=== PATIENT | female | born 1995 | race Two or more races ===

== ENCOUNTER 2020-02-16 11:10 | Outpatient (REF) | payer OTHER, SELFPAY | END 2020-02-16 11:11 | disposition home or self-care (01) | LOC: HO.LAB 11:10 | PROVIDERS: Visit Provider Internal Medicine | DX: Z20.828 Contact with and (suspected) exposure to other viral communicable diseases (principal) | CPT/HCPCS: C9803; U0003 ==

== ENCOUNTER 2024-04-06 11:11 | Emergency (ER) | payer OTHER, SELFPAY ==
--- NOTE | ~2024-04-06 | XR_ITS ---
EXAMINATION: XR ELBOW, RIGHT CLINICAL INFORMATION: right elbow pain. COMPARISON: None available. TECHNIQUE: AP, lateral, and oblique views of the right elbow. FINDINGS: Anterior sail sign raising concern for possible underlying occult fracture, no displaced fracture can be visualized however this could be subtle occult. XR/XR elbow RT min 3V IMPRESSION: Anterior sail sign raising concern for possible occult fracture, no displaced fracture can be visualized by radiograph however this could be subtle occult. Consider correlation with patient's symptoms and may consider follow-up x-ray or CT scan in 3 days. Electronically signed by: Mony Tang MD 04/06/2024 11:40 AM [facility]
--- NOTE | ~2024-04-06 | XR_ITS ---
EXAMINATION: XR HAND/WRIST, RIGHT CLINICAL INFORMATION: fracture? COMPARISON: None available. TECHNIQUE: PA, lateral, and oblique views of the right hand and wrist. FINDINGS: The clinical history submitted states only fracture? It does not state exactly where fracture is suspected, limiting the study. Therefore, clinical correlation is advised. Right second distal phalanx bone island. The bones and soft tissues otherwise appear unremarkable. No fracture identified. Alignment is anatomic. Joint spaces appear maintained. No erosions or soft tissue calcifications. XR/XR hand wrist RT IMPRESSION: No acute finding. Electronically signed by: Dg Quigley MD 04/06/2024 12:05 PM [facility]
--- NOTE | ~2024-04-06 | US_ITS ---
EXAMINATION: US TRIPLEX UPPER EXTREMITY, RIGHT CLINICAL INFORMATION: Right arm feels swollen. COMPARISON: None available. TECHNIQUE: Color-flow triplex imaging with spectral analysis and compression Doppler was performed on the right upper extremity. FINDINGS: The right internal jugular, subclavian, and axillary veins appear patent and free of thrombus. The imaged segment of the right brachiocephalic vein is patent. Spectral doppler waveforms appear unremarkable. The brachial, basilic, cephalic, radial, and ulnar veins are patent and compressible. Incidentally visualized, normal-appearing right level III lymph node. US/US venous duplex UE RT IMPRESSION: No evidence of venous thrombosis involving the right upper extremity. Electronically signed by: Dg Quigley MD 04/06/2024 01:51 PM EST
[2024-04-06 11:14] VITALS: BP 120/84; PULSE 87; RESP 16; TEMP 36.4; O2SAT 99
--- NOTE | 2024-04-06 11:18 | ED_ITS ---
HPI - General Adult General Chief complaint: Extremity Injury, Upper Stated complaint: arm pain Time Seen by Provider: 04/06/24 11:25 Source: patient Mode of arrival: ambulatory Limitations: no limitations History of Present Illness ED Provider: Ted Barry HPI narrative: 28 yold female with pmh of DM presents to the ED right elbow pain for one week with pain when flexing or extending elbow. patient denies any recent trauma. patient having symptoms for one week. patient thought her hand felt swollen so she had to cut her rings off. patient denies any birht control use. Patient denies any chest pain or shortness of breath. Patietn deneis any redness or swelling, or bluish black discloration Related Data Previous Rx's ?Medication ?Instructions ?Recorded naproxen 500 mg tablet 500 mg PO BID PRN pain 7 days #14 04/06/24 tabs Allergies Allergy/AdvReac Type Severity Reaction Status Date / Time No Known Allergies Allergy Verified 04/06/24 11:18 Review of Systems 2 Review of Systems: right elbow pain Yes all other systems are reviewed and are negative [facility] Social History Social History Advance Directives: No Physical Exam ED Vital Signs: Vital Signs - 24 hr 04/06/24 11:14 04/06/24 14:51 04/06/24 14:54 Temperature 97.5 F 98.2 F 98.2 F Pulse Rate 87 72 72 Respiratory Rate 16 14 14 Blood Pressure 120/84 105/69 105/69 Pulse Oximetry 99 99 99 Oxygen Delivery Method Room Air Room Air Room Air BMI result Body Mass Index 20.0 Const General: cooperative, healthy appearing, comfortable and no acute distress Orientation/consciousness: patient oriented x3 HENMT Head: Yes normal to inspection, Yes No palpable skull fracture present, Yes normocephalic and Yes atraumatic Eyes General: appearance normal, both eyes and all related structures Neck Neck: Yes normal visual inspection, Yes full ROM, Yes no lymphadenopathy, Yes no meningeal signs, Yes trachea midline, Yes supple, No anterior neck swelling and No tender Chest Chest palpation & inspection: normal inspection of the chest and normal palpation of entire chest wall Resp Effort & Inspection: normal respiratory effort and able to speak in complete sentences Auscultation: clear to auscultation bilaterally Cardio Jugular venous distension: no JVD Heart sounds: S1 normal heart sound present and S2 normal heart sound present GI Inspection: Yes normal to inspection Palpation (GI): Soft to palpation, not firm, nontender, no guarding and not rigid General: Yes no CVA tenderness Back/Spine/Pelvis Back: no CVA tenderness and No back tenderness Skin General skin exam: no rashes or lesions noted, elasticity normal and turgor normal Neuro General: patient oriented x3, gait normal, tone normal, moves all extremities, Normal light touch and pain sensation, no meningeal signs, no focal motor deficits, CN's II-XI intact bilaterally and normal sensation to monofilament Extrem General: Yes normal to inspection and Yes full ROM Shoulder/upper arm images: 2 1. Tenderness to palpation. Negative for redness, swelling, warmth, ecchymosis, or deformity. Positive for pain on flexion and extension of the elbow. Rest of extremity normal. Motor/neuro/vascular exam intact. Psych Appearance: grossly normal, well kempt and not disheveled Course Course Course Narrative: RME: done by SERGE Barry. 28 yold female with pmh of DM presents to the ED right elbow pain that is worse on movement and feel right upper extremity is swollen. patient denies any recent trauma. pain flexing and extending elbow. Xray or US ordereed Medical Decision Making Medical Decision Making MDM Narrative: 28-year-old female presents to ED for right elbow pain worse on movement and she thought her right hand or swollen she took her rings off. On exam negative for swelling of right hand or forearm. Negative for red streaks, bluish black discoloration or deformities. Positive for tenderness on right elbow. Was sent for elbow x-ray and ultrasound upper extremity. 12:43pm: Case was discussed with SERGE Teran of Orthopedic if patient should be placed in sling or long arm splint due to patient having symptoms for over a week. X-ray showed anterior cell sign positive occult fracture. Dr. Lewis was came and evaluated patient and states best plan of action is sling. Patient then told him she was having right elbow symptoms ( pain) for 3 months. With this new information he states patient may be having some inflammatory rheumatology autoimmune etiology and recommend labs sling and follow up with primary care provider for rheumoatology referral. 2:29pm: Patient labs are normal. Patient placed in sling and informed to follow up pCP for referaal to reconciliation specialist. Also given orthot information. Patient explained worrisome signs and informed to return to the ED immediately. Not suspecting septic joint, arterial occlusion, DVT, cellulitis, necrotizing fasciitis, or compartment syndrome. Patient given copy of labs and imaging. Differential Diagnosis Differential Diagnoses: The differential diagnosis associated with the presentation includes (Fracture, dislocation, DVT) Admission/Observation Consideration of admission/observation: Escalation of care including admission/observation considered Consult Healthcare Provider Management of the patient was discussed with: Machine Adjuster Leader Case Trim (SERGE Teran) Lab Data 04/06/24 13:05 04/06/24 13:04 Labs: Lab Results 04/06/24 04/06/24 04/06/24 Range/Units 11:55 13:04 13:05 WBC 6.3 (4.8-10.8) X10*3/uL RBC 5.03 (4.20-5.50) X10*6/uL Hgb 15.8 (12.0-16.0) g/dl Hct 43.0 (37.0-47.0) % MCV 85.5 (80.0-98.0) fL MCH 31.4 (27.0-33.0) pg MCHC 36.7 H (31.0-35.0) g/dl RDW 11.4 (11.0-16.0) % Plt Count 219 (160-400) X10*3/uL MPV 10.9 (9.4-12.3) fL Immature Gran % (Auto) 0.2 (0.0-0.4) % Neut % (Auto) 59.2 (45-73) % Lymph % (Auto) 23.4 (20-40) % [place] % (Auto) 6.0 (2-11) % Eos % (Auto) 10.4 H (0-4) % Baso % (Auto) 0.8 (0-2) % Lymph # (Auto) 1.5 (1.2-4.9) X10*3/uL [place] # (Auto) 0.4 (0.1-1.2) X10*3/uL Eos # (Auto) 0.7 H (0.0-0.4) X10*3/uL Baso # (Auto) 0.1 (0.0-0.2) X10*3/uL Abs Immat Gran (auto) 0.01 (0.00-0.03) X10*3/uL Absolute Neuts (auto) 3.7 (2.0-8.3) x10*3/uL Absolute Nucleated RBC 0.000 (0.0-0.012) X10*3/uL Nucleated RBC % (auto) 0.0 (0.0-0.2) /100WBC ESR 12 (0-20) MM/HR PT 10.2 L (10.9-12.4) SEC INR 0.9 (0.9-1.1) APTT 32.7 (26.0-36.8) SEC Sodium 139 (135-145) mmol/L Potassium 3.4 (3.3-5.1) mmol/L Chloride 102 (96-108) mmol/L Carbon Dioxide 29 (22-29) mmol/L Anion Gap 11 L (12-20) BUN 8 L (9-16) mg/dL Creatinine 0.66 (0.5-1.4) mg/dL Estim Creat Clear Calc 109.0 Estimated GFR > 60 POC Glucose 231 H (60-115) mg/dL Random Glucose 207 H (60-115) mg/dL Calcium 10.2 (8.4-10.2) mg/dL Total Bilirubin 1.0 (0.0-1.0) mg/dL AST 17 (5-31) U/L ALT 13 (0-31) U/L Alkaline Phosphatase 83 (39-117) U/L C-Reactive Protein 0.27 (< or = 0.50) mg/dL Total Protein 7.6 (6.5-8.0) g/dL Albumin 4.0 (3.5-5.0) g/dL Independent Interpretation I performed an independent interpretation of an: Plain X-Ray and Ultrasound Radiology Impression Discussion of test interpretation with radiology: I have reviewed the radiologist's reading. Independent Historian Clinical information obtained from an independent historian. History obtained from or confirmed by: Other External Record Review External record reviewed: Other (patient) Discharge Plan Discharge Clinical Impression: Effusion of elbow joint, right Patient Disposition: Home, Self-Care Instructions: Swollen Joint (ED) Additional Instructions: You will need to follow-up with your primary care provider to referral to wood floor layer to see if you have any autoimmune etiologies that can be causing joint pain/joint fluid. You will also be given information to contact orthopedic surgeon case this is an actual fracture. Return to the ED immediately for any increased swelling, redness, bluish black discoloration, chest pain or rash for fever, chills, red streaks, or any other concerning symptoms. XR/XR elbow RT min 3V IMPRESSION: Anterior sail sign raising concern for possible occult fracture, no displaced fracture can be visualized by radiograph however this could be subtle occult. Consider correlation with patient's symptoms and may consider follow-up x-ray or CT scan in 3 days. Electronically signed by: Mony Tang MD 04/06/2024 11:40 AM [employer] FINDINGS: The right internal jugular, subclavian, and axillary veins appear patent and free of thrombus. The imaged segment of the right brachiocephalic vein is patent. Spectral doppler waveforms appear unremarkable. The brachial, basilic, cephalic, radial, and ulnar veins are patent and compressible. Incidentally visualized, normal-appearing right level III lymph node. US/US venous duplex UE RT IMPRESSION: No evidence of venous thrombosis involving the right upper extremity. Electronically signed by: Dg Quigley MD 04/06/2024 01:51 PM [employer] Test Result Flag Reference Sodium 139 135-145 mmol/L Potassium 3.4 3.3-5.1 mmol/L CL 102 96-108 mmol/L CO2 29 22-29 mmol/L Gap 11 L 12-20 BUN 8 L 9-16 mg/dL Creat 0.66 0.5-1.4 mg/dL Estimated CrCl 109.0 Provided height and weight: 165.1 cm, 54.431 kg. eGFR (calculated from the MDRD study equation) and eCrCl (calculated from the Cockcroft-Gault equation) are based on different parameters and may not yield comparable results. If eCrCl result is absurd, please check patient's height/weight. eGFR > 60 Chronic Kidney Disease: Estimated GFR < 60 mL/min/1.73m2 Severe Kidney Disease: Estimated GFR < 15 mL/min/1.73m2 Glucose, Random 207 H 60-115 mg/dL CA 10.2 8.4-10.2 mg/dL Total Bili 1.0 0.0-1.0 mg/dL AST (GOT) 17 5-31 U/L ALT (GPT) 13 0-31 U/L CRP 0.27 < or = 0.50 mg/dL Protein, Total 7.6 6.5-8.0 g/dL Alb 4.0 3.5-5.0 g/dL Alk Phos 83 39-117 U/L END OF REPORT Test Result Flag Reference WBC 6.3 4.8-10.8 X10*3/uL RBC 5.03 4.20-5.50 X10*6/uL HGB 15.8 12.0-16.0 g/dl HCT 43.0 37.0-47.0 % MCV 85.5 80.0-98.0 fL MCH 31.4 27.0-33.0 pg MCHC 36.7 H 31.0-35.0 g/dl RDW 11.4 11.0-16.0 % PLT 219 160-400 X10*3/uL MPV 10.9 9.4-12.3 fL Neut Pct Auto 59.2 45-73 % ImGran Pct Auto 0.2 0.0-0.4 % Lymp Pct Auto 23.4 20-40 % [place] Pct Auto 6.0 2-11 % Eos Pct Auto 10.4 H 0-4 % Baso Pct Auto 0.8 0-2 % NRBC Pct Auto 0.0 0.0-0.2 /100WBC ANC Neut Abs # 3.7 2.0-8.3 x10*3/uL ImGran Abs Auto 0.01 0.00-0.03 X10*3/uL Lymph Abs Auto 1.5 1.2-4.9 X10*3/uL [place] Abs Auto 0.4 0.1-1.2 X10*3/uL Eos Abs Auto 0.7 H 0.0-0.4 X10*3/uL Baso Abs Auto 0.1 0.0-0.2 X10*3/uL NRBC Abs Auto 0.000 0.0-0.012 X10*3/uL END OF REPORT Prescriptions: New naproxen 500 mg tablet 500 mg PO BID PRN (Reason: pain) 7 Days Qty: 14 0RF Referrals: [facility] [Provider Group] (Right elbow air cells sign. Possible occult fracture. Right elbow pain for 3 months.) Brandee Rider FNP [Primary Care Provider] - (Right elbow pain for 3 months x-ray shows air cell sign. May need rheumatology autoimmune workup.) Stand Alone Forms: Work/School Release Interventions: ED Discharge Assessment Last Done: 04/06/24 14:54 Discharge Date/Time: 04/06/24 14:55 Print Language: Greek
[2024-04-06 11:58] LABS: Glucose, Whole Blood 231 mg/dL (60-115)
--- NOTE | 2024-04-06 12:52 | PC.NURSE ---
US currently at bedside, pt to have labs drawn after they have completed
--- NOTE | 2024-04-06 12:52 | MHC.EDTECH ---
Delay in drawing labs due to ultrasound being performed at bedside.
[2024-04-06 13:09] LABS: MANUAL DIFF FLAG NO
[2024-04-06 13:16] LABS: Basophils Absolute Auto 0.1 X10*3/uL (0.0-0.2); Basophils Percent Auto 0.8 % (0-2); Eosinophils Absolute Auto 0.7 X10*3/uL (0.0-0.4); Eosinophils Percent Auto 10.4 % (0-4); Hemoglobin 15.8 g/dl (12.0-16.0); Imm Gran Abs Auto 0.01 X10*3/uL (0.00-0.03); Imm Gran Pct Auto 0.2 % (0.0-0.4); Lymphocytes Absolute Auto 1.5 X10*3/uL (1.2-4.9); Lymphocytes Percent Auto 23.4 % (20-40); Mean Corpuscular HGB Conc 36.7 g/dl (31.0-35.0); Mean Corpuscular Hemoglobin 31.4 pg (27.0-33.0); Mean Corpuscular Volume 85.5 fL (80.0-98.0); Mean Platelet Volume 10.9 fL (9.4-12.3); Monocytes Absolute Auto 0.4 X10*3/uL (0.1-1.2); Neutrophils Absolute Auto 3.7 x10*3/uL (2.0-8.3); Neutrophils Percent Auto 59.2 % (45-73); Platelet Count 219 X10*3/uL (160-400); Red Blood Count 5.03 X10*6/uL (4.20-5.50); Red Cell Distribution Width 11.4 % (11.0-16.0); White Blood Count 6.3 X10*3/uL (4.8-10.8)
[2024-04-06 13:17] LABS: INTERNATIONAL NORM RATIO 0.9 (0.9-1.1); Prothrombin Time 10.2 SEC (10.9-12.4)
[2024-04-06 13:19] LABS: Partial Thromboplastin Time 32.7 SEC (26.0-36.8)
[2024-04-06 13:49] LABS: Alanine Aminotransferase 13 U/L (0-31); Alkaline Phosphatase 83 U/L (39-117); Anion Gap 11 (12-20); Aspartate Amino Transferase 17 U/L (5-31); Blood Urea Nitrogen 8 mg/dL (9-16); C Reactive Protein 0.27 mg/dL (< or = 0.50); Calcium 10.2 mg/dL (8.4-10.2); Carbon Dioxide 29 mmol/L (22-29); Chloride 102 mmol/L (96-108); Estimated Glomerular Filt Rate > 60; Glucose Random 207 mg/dL (60-115); Potassium 3.4 mmol/L (3.3-5.1); Sodium 139 mmol/L (135-145); Total Protein 7.6 g/dL (6.5-8.0)
[2024-04-06 14:14] LABS: Erythrocyte Sedimentation Rate 12 MM/HR (0-20)
[2024-04-06 14:51] VITALS: BP 105/69; PULSE 72; RESP 14; TEMP 36.8; O2SAT 99
[2024-04-06 14:54] VITALS: BP 105/69; PULSE 72; RESP 14; TEMP 36.8; O2SAT 99
[2024-04-07 13:03] LABS: Lyme Abs Screen <0.90 index
[2024-04-07 21:59] LABS: A. Phagocytphilium DNA,RT-PCR NOT DETECTED (NOT DETECTED); Babesia Microti DNA, RT-PCR NOT DETECTED (NOT DETECTED); Borrelia Miyamotoi,DNA RT-PCR NOT DETECTED (NOT DETECTED); E.Chaffeensis DNA RT-PCR NOT DETECTED (NOT DETECTED); Lyme(Borrelia ssp)DNA RT-PCR NOT DETECTED (NOT DETECTED)
== END 2024-04-06 14:55 | disposition home or self-care (01) ==
PROVIDERS: Physician Assistant; Emergency Provider Emergency Medicine; PCP Registered Nurse
DX: M25.421 Effusion, right elbow (principal); M25.521 Pain in right elbow
CPT/HCPCS: 36415; 73080; 73110; 73130; 80053; 82947; 85025; 85610; 85652; 85730; 86140; 86617; 86618; 87468; 87469; 87478; 87484; 87798; 93971; 99283; 99284

== ENCOUNTER 2024-10-05 21:47 | Inpatient (IN) | payer OTHER, SELFPAY ==
[2024-10-05 21:56] VITALS: BP 120/73; PULSE 111; RESP 16; TEMP 36.5; O2SAT 98; BMI 19.9
[2024-10-05 22:21] LABS: Hematocrit 44.6 % (37.0-47.0); Hemoglobin 16.2 g/dl (12.0-16.0); Mean Corpuscular HGB Conc 36.3 g/dl (31.0-35.0); Mean Corpuscular Hemoglobin 31.3 pg (27.0-33.0); Mean Corpuscular Volume 86.3 fL (80.0-98.0); Mean Platelet Volume 10.9 fL (9.4-12.3); Platelet Count 250 X10*3/uL (160-400); Red Blood Count 5.17 X10*6/uL (4.20-5.50); Red Cell Distribution Width 11.4 % (11.0-16.0); White Blood Count 10.7 X10*3/uL (4.8-10.8)
--- OUTSIDE RECORDS SUMMARY | 2024-10-05 22:29 | XMS_ITS | Clinical Summary ---
Author Organization [facility] it Address [address] [place] [address] Care Team Providers Care Barrel Bander Name Role Phone Unavailable Primary Care Provider Unavailabl e Surgical History Surgery Date Site/Laterality Comments OTHER SURGICAL HISTORY PROCEDURE: DENIES PREVIOUS SURGERY Medical History Medical History Date Comments Bipolar 1 disorder (CMS/HCC V24, CMS/HCC V28) DX:Bipolar 1 disorder (HCC) Family History Medical History Relation Name Comments Thyroid disease Aunt Hypertension Maternal Grandmother Thyroid disease Maternal Grandmother Diabetes Mother Hypertension Mother Relation Name Status Comments Aunt Father Alive Maternal Grandmother Mother Alive Social History Tobacco Use Types Packs/Day Years Used Date Smoking Tobacco: Every Day Smokeless Tobacco: Never Alcohol Use Standard Drinks/Week Comments Yes 0 (1 standard drink = 0.6 oz pur e alcohol) Comments Unknown Sex and Gender Information Value Date Recorded Sex Assigned at Not on file Legal Sex Female 2:00 AM EST Gender Identity Not on file Sexual Orientation Not on file Obstetrics History Plan of Treatment Health Maintenance Due Date Last Done Comments DTaP,Tdap,and Td Vaccines (1 - Tdap) 11/16/2014 Hepatitis B Vaccines (1 of 3 - 19+ 3-dose series) 11/16/2014 Pneumococcal Vaccine: Pediat rics (0 to 5 Years) and At-Risk Patients (6 to 64 Years) (1 of 2 - PCV) 11/16/2014 Cervical Cancer Screening: P ap Smear 11/16/2016 Depression Screening 03/16/2022 HIV Screening 03/16/2022 Hepatitis C Screening 03/16/2022 Social Influencers of Health Screening 03/16/2022 COVID-19 Vaccine ( - 2023-2 5 season) 2023 Influenza Vaccine (Season Ended) 2024 HIB Vaccines Aged Out No longer eligi ble based on patient's age to complete this topic HPV Vaccines Aged Out No longer eligi ble based on patient's age to complete this topic Hepatitis A Vaccines Aged Out No long er eligible based on patient's age to complete this topic IPV Vaccines Aged Out No longer eligi ble based on patient's age to complete this topic MMR Vaccines Aged Out No longer eligi ble based on patient's age to complete this topic Meningococcal ACWY Vaccine Aged Out N o longer eligible based on patient's age to complete this topic Meningococcal B Vaccine Aged Out No l onger eligible based on patient's age to complete this topic RSV Immunization Patients Un karen 20 months Aged Out No longer eligible b ased on patient's age to complete this topic Varicella Vaccines Aged Out No longer eligible based on patient's age to complete this topic
[2024-10-05 22:31] LABS: Appearance Urine Clear; Color Urine Yellow; Glucose Urine UA >=1000 mg/dL (Negative); Leukocyte Esterase Urine Negative (Negative); Nitrite Urine Negative (Negative); PH 5.5 (5.0-9.0); Specific Gravity - Urine >= 1.030 (1.005-1.025); UMIC TRIGGER UA YES; Urine Blood Negative (Negative); Urine Ketones >=160 mg/dL (Negative); Urine Protein 30 (1+) mg/dL (Neg-Trace)
[2024-10-05 22:37] LABS: Bacteria Urine 1+ (None Seen); Hyaline Casts Urine 0-2 /LPF (0-2); RBC Urine 0-2 /HPF (0-2); WBC Urine 0-5 /HPF (0-5)
[2024-10-05 22:38] VITALS: BP 114/71; PULSE 103; RESP 16; TEMP 36.8; O2SAT 96
[2024-10-05 22:44] LABS: Alanine Aminotransferase 12 U/L (0-31); Albumin Level 4.6 g/dL (3.5-5.0); Alkaline Phosphatase 109 U/L (39-117); Anion Gap 24 (12-20); Aspartate Amino Transferase 18 U/L (5-31); Blood Urea Nitrogen 17 mg/dL (9-16); Calcium 9.4 mg/dL (8.4-10.2); Carbon Dioxide 11 mmol/L (22-29); Chloride 105 mmol/L (96-108); Creatinine Clr Calc Pharmacy 85.3; Estimated Glomerular Filt Rate > 60; Glucose Random 238 mg/dL (60-115); Magnesium 1.7 mg/dL (1.6-2.6); Potassium 4.5 mmol/L (3.3-5.1); Sodium 135 mmol/L (135-145); Total Protein 8.2 g/dL (6.5-8.0)
--- NOTE | 2024-10-05 23:13 | ED.GENADULT ---
HPI - General Adult General Chief complaint: Weakness Stated complaint: BS 340; Diabetic weak, fatigue headache thirsty Time Seen by Provider: 10/05/24 22:55 Source: patient Mode of arrival: ambulatory Limitations: no limitations History of Present Illness ED Provider: HPI narrative: Patient's history of type 1 diabetes insulin dependent takes Lantus 25 units daily and tenderness of Humalog 3 times a day before meals ran out of her needles and was using same needle multiple days for last 2 days she did not use any insulin today at 20:00 patient's took insulin 25 units of Lantus and 10 units of Humalog. All day patient has been feeling weak tired and did not eat any food feel nauseated no abdominal pain no vomiting no fever no chills Related Data Previous Rx's ?Medication ?Instructions ?Recorded naproxen 500 mg tablet 500 mg PO BID PRN pain 7 days #14 04/06/24 tabs insulin glargine 100 unit/mL (3 25 unit (0.25 mL) subcut QAM #15 mL 10/06/24 mL) subcutaneous pen (Lantus Solostar U-100 Insulin) Allergies Allergy/AdvReac Type Severity Reaction Status Date / Time No Known Allergies Allergy Verified 10/05/24 22:05 Review of Systems Review of Systems: Yes all other systems are reviewed and are negative [facility] Social History Social History Smoked in Last 30 Days: No Use of substances other than those prescribed or required for medical reasons: No Advance Directives: No Advance Directives Information Provided: No Patient : No Physical Exam ED Vital Signs: Vital Signs - 24 hr 10/05/24 21:56 10/05/24 22:38 10/06/24 01:14 Temperature 97.7 F 98.3 F Pulse Rate 111 H 103 H 81 Respiratory Rate 16 16 16 Blood Pressure 120/73 114/71 109/69 Pulse Oximetry 98 96 100 Oxygen Delivery Method Room Air Room Air Room Air 10/06/24 03:20 10/06/24 04:37 Temperature 98.1 F Pulse Rate 89 84 Respiratory Rate 13 18 Blood Pressure 105/68 101/64 Pulse Oximetry 99 97 Oxygen Delivery Method Room Air Room Air BMI result Body Mass Index 19.9 Appearance: Alert. Oriented X3. No acute distress. Eyes: PERRLA, No Nystagmus ENT: Pharynx normal. Oral Mucosa moist Neck: Normal inspection. Neck supple. CVS: Normal heart rate and rhythm. Pulses normal. Respiratory: No respiratory distress. Equal air entry bilateral, no wheezing/rales/rhonchi Abdomen: Soft and nontender. Bowel sounds are present, no mass palpable, no CVA tenderness Skin: Skin warm and dry. Normal skin color. Normal skin turgor. Extremities: No lower extremity edema. No calf tenderness Neuro: Oriented X 3. No motor deficit. No sensory deficit.No cerebellar signs , cranial nerves II-XII intact Medications Administered Discontinued Medications Generic Name Dose Route Start Last Admin Trade Name Freq PRN Reason Stop Dose Admin Sodium Chloride 1,000 mls @ 999 mls/hr 10/05/24 23:09 10/06/24 00:55 Ns IV 10/06/24 00:09 Infused .Q1H1M ONE Infusion Sodium Chloride 1,000 mls @ 999 mls/hr 10/06/24 01:05 10/06/24 01:56 Ns IV 10/06/24 02:05 Infused .Q1H1M ONE Infusion Lactated Ringer's 1,000 mls @ 999 mls/hr 10/06/24 03:45 10/06/24 04:24 Lr IV 10/06/24 04:45 Infused .Q1H1M SERENA Infusion Sodium Bicarbonate 50 meq 10/06/24 03:34 10/06/24 03:41 Sodium Bicarbonate 8.4% 50 Meq/50 Ml Syringe IVPUSH 10/06/24 03:35 50 meq ONCE ONE Administration Medical Decision Making Medical Decision Making [facility] Narrative: Patient is diabetic ketoacidosis improved after IV hydration and insulin which she took at home prior to arrival anion gap closed patient has received 2 L of IV fluids and insulin will rechecked venous gases after 2 L of fluid I received sign-out from my colleague Dr. Hernandez Of 2 L of fluid, patient's venous pH actually decreased. Patient received an additional L of lactated Ringer's and bicarb. Repeat labs show a pH with an improvement, now 7.24, bicarb 15. Chemistry shows an anion gap of 18, closed now. Glucose 152. I discussed the patient with Dr. Kilgore from the medicine team , patient being admitted. Differential Diagnosis Differential Diagnoses: The differential diagnosis associated with the presentation includes Diabetic ketoacidosis Admission/Observation Consideration of admission/observation: Escalation of care including admission/observation considered Lab Data MDM Lab Attestation statement: I reviewed the patient's lab results. 10/05/24 22:16 10/06/24 00:55 Labs: Lab Results 10/05/24 10/05/24 10/05/24 Range/Units 22:16 22:18 23:11 WBC 10.7 (4.8-10.8) X10*3/uL RBC 5.17 (4.20-5.50) X10*6/uL Hgb 16.2 H (12.0-16.0) g/dl Hct 44.6 (37.0-47.0) % MCV 86.3 (80.0-98.0) fL MCH 31.3 (27.0-33.0) pg MCHC 36.3 H (31.0-35.0) g/dl RDW 11.4 (11.0-16.0) % Plt Count 250 (160-400) X10*3/uL MPV 10.9 (9.4-12.3) fL Absolute Nucleated RBC 0.000 (0.0-0.012) X10*3/uL Nucleated RBC % (auto) 0.0 (0.0-0.2) /100WBC VBG pH (7.32-7.43) VBG pCO2 mmHg VBG pO2 mmHg VBG HCO3 (22-26) mmol/L VBG O2 Saturation % VBG Base Excess mmol/L Sodium 135 (135-145) mmol/L Potassium 4.5 D (3.3-5.1) mmol/L Chloride 105 (96-108) mmol/L Carbon Dioxide 11 L (22-29) mmol/L Anion Gap 24 H (12-20) BUN 17 H (9-16) mg/dL Creatinine 0.89 (0.5-1.4) mg/dL Estim Creat Clear Calc 85.3 Estimated GFR > 60 POC Glucose 218 H (60-115) mg/dL Random Glucose 238 H (60-115) mg/dL Calcium 9.4 D (8.4-10.2) mg/dL Magnesium 1.7 (1.6-2.6) mg/dL Total Bilirubin 1.0 (0.0-1.0) mg/dL AST 18 (5-31) U/L ALT 12 (0-31) U/L Alkaline Phosphatase 109 (39-117) U/L Total Protein 8.2 H (6.5-8.0) g/dL Albumin 4.6 (3.5-5.0) g/dL Beta-Hydroxybutyrate 7.52 H (0.02-0.27) mmol/L Urine Color Yellow Urine Appearance Clear Urine pH 5.5 (5.0-9.0) Ur Specific [place] >= 1.030 H (1.005-1.025) Urine Protein 30 (1+) H (Neg-Trace) mg/dL Urine Glucose (UA) >=1000 H (Negative) mg/dL Urine Ketones >=160 (Negative) mg/dL Urine Blood Negative (Negative) Urine Nitrite Negative (Negative) Ur Leukocyte Esterase Negative (Negative) Urine RBC 0-2 (0-2) /HPF Urine WBC 0-5 (0-5) /HPF Ur Squamous Epith Cells 6-10 (0-2) /HPF Urine Bacteria 1+ (None Seen) Hyaline Casts 0-2 (0-2) /LPF 10/06/24 10/06/24 10/06/24 Range/Units 00:55 01:00 02:11 WBC (4.8-10.8) X10*3/uL RBC (4.20-5.50) X10*6/uL Hgb (12.0-16.0) g/dl Hct (37.0-47.0) % MCV (80.0-98.0) fL MCH (27.0-33.0) pg MCHC (31.0-35.0) g/dl RDW (11.0-16.0) % Plt Count (160-400) X10*3/uL MPV (9.4-12.3) fL Absolute Nucleated RBC (0.0-0.012) X10*3/uL Nucleated RBC % (auto) (0.0-0.2) /100WBC VBG pH 7.17 L* 7.13 L* (7.32-7.43) VBG pCO2 36 37 mmHg VBG pO2 36 39 mmHg VBG HCO3 13 L 12 L (22-26) mmol/L VBG O2 Saturation 47.0 51.0 % VBG Base Excess -14.1 -15.6 mmol/L Sodium 135 (135-145) mmol/L Potassium 4.3 (3.3-5.1) mmol/L Chloride 108 (96-108) mmol/L Carbon Dioxide 13 L (22-29) mmol/L Anion Gap 18 (12-20) BUN 14 (9-16) mg/dL Creatinine 0.64 (0.5-1.4) mg/dL Estim Creat Clear Calc 118.7 Estimated GFR > 60 POC Glucose (60-115) mg/dL Random Glucose 152 H (60-115) mg/dL Calcium 8.4 D (8.4-10.2) mg/dL Magnesium (1.6-2.6) mg/dL Total Bilirubin (0.0-1.0) mg/dL AST (5-31) U/L ALT (0-31) U/L Alkaline Phosphatase (39-117) U/L Total Protein (6.5-8.0) g/dL Albumin (3.5-5.0) g/dL Beta-Hydroxybutyrate (0.02-0.27) mmol/L Urine Color Urine Appearance Urine pH (5.0-9.0) Ur Specific [place] (1.005-1.025) Urine Protein (Neg-Trace) mg/dL Urine Glucose (UA) (Negative) mg/dL Urine Ketones (Negative) mg/dL Urine Blood (Negative) Urine Nitrite (Negative) Ur Leukocyte Esterase (Negative) Urine RBC (0-2) /HPF Urine WBC (0-5) /HPF Ur Squamous Epith Cells (0-2) /HPF Urine Bacteria (None Seen) Hyaline Casts (0-2) /LPF //25 Range/Units 04:42 WBC (4.8-10.8) X10*3/uL RBC (4.20-5.50) X10*6/uL Hgb (12.0-16.0) g/dl Hct (37.0-47.0) % MCV (80.0-98.0) fL MCH (27.0-33.0) pg MCHC (31.0-35.0) g/dl RDW (11.0-16.0) % Plt Count (160-400) X10*3/uL MPV (9.4-12.3) fL Absolute Nucleated RBC (0.0-0.012) X10*3/uL Nucleated RBC % (auto) (0.0-0.2) /100WBC VBG pH 7.24 L (7.32-7.43) VBG pCO2 35 mmHg VBG pO2 36 mmHg VBG HCO3 15 L (22-26) mmol/L VBG O2 Saturation 55.0 % VBG Base Excess -10.7 mmol/L Sodium (135-145) mmol/L Potassium (3.3-5.1) mmol/L Chloride (96-108) mmol/L Carbon Dioxide (22-29) mmol/L Anion Gap (12-20) BUN (9-16) mg/dL Creatinine (0.5-1.4) mg/dL Estim Creat Clear Calc Estimated GFR POC Glucose (60-115) mg/dL Random Glucose (60-115) mg/dL Calcium (8.4-10.2) mg/dL Magnesium (1.6-2.6) mg/dL Total Bilirubin (0.0-1.0) mg/dL AST (5-31) U/L ALT (0-31) U/L Alkaline Phosphatase (39-117) U/L Total Protein (6.5-8.0) g/dL Albumin (3.5-5.0) g/dL Beta-Hydroxybutyrate (0.02-0.27) mmol/L Urine Color Urine Appearance Urine pH (5.0-9.0) Ur Specific [place] (1.005-1.025) Urine Protein (Neg-Trace) mg/dL Urine Glucose (UA) (Negative) mg/dL Urine Ketones (Negative) mg/dL Urine Blood (Negative) Urine Nitrite (Negative) Ur Leukocyte Esterase (Negative) Urine RBC (0-2) /HPF Urine WBC (0-5) /HPF Ur Squamous Epith Cells (0-2) /HPF Urine Bacteria (None Seen) Hyaline Casts (0-2) /LPF Critical Care Time Critical Care Time Critical Care Time: Yes Total Critical Care Time: 60 Attestation: I have personally provided critical care time. Time includes review of lab data, radiology results, discussion with consultants, and monitoring for potential decompensation. Intervention performed as documented. Discharge Plan Discharge Clinical Impression: Diabetes mellitus with hyperglycemia, Acidosis due to type 1 diabetes mellitus Patient Disposition: Admitted As Inpatient Additional Instructions: Drink plenty of fluids Take your insulin on time Follow up as outpatient with your PCP / director hospice operations Print Language: Pakistani
[2024-10-05 23:15] LABS: Glucose, Whole Blood 218 mg/dL (60-115)
[2024-10-05] MEDS: 0.9 % Sodium Chloride 1,000 ML 999 ML IV (23:24)
[2024-10-05 23:38] LABS: Beta-Hydroxybutyrate 7.52 mmol/L (0.02-0.27)
[2024-10-06] VITALS (10 sets, daily range): BP systolic 89–109; BP diastolic 56–69; PULSE 80–97; RESP 13–18; TEMP 36.7–37; O2SAT 93–100; BMI 21.4
[2024-10-06 01:06] LABS: Venous Blood Gas Refer to POC result
[2024-10-06] MEDS: 0.9 % Sodium Chloride 1,000 ML 999 ML IV (01:07)
[2024-10-06 01:08] LABS: VBG Base Excess -14.1 mmol/L; VBG HCO3 13 mmol/L (22-26); VBG pCO2 36 mmHg; VBG pH 7.17 (7.32-7.43); VBG pO2 36 mmHg
[2024-10-06 01:18] LABS: Anion Gap 18 (12-20); Blood Urea Nitrogen 14 mg/dL (9-16); Calcium 8.4 mg/dL (8.4-10.2); Carbon Dioxide 13 mmol/L (22-29); Chloride 108 mmol/L (96-108); Creatinine Clr Calc Pharmacy 118.7; Estimated Glomerular Filt Rate > 60; Glucose Random 152 mg/dL (60-115); Potassium 4.3 mmol/L (3.3-5.1); Sodium 135 mmol/L (135-145)
[2024-10-06 02:13] LABS: Venous Blood Gas Refer to POC result
[2024-10-06 03:21] LABS: VBG Base Excess -15.6 mmol/L; VBG HCO3 12 mmol/L (22-26); VBG pCO2 37 mmHg; VBG pH 7.13 (7.32-7.43); VBG pO2 39 mmHg
[2024-10-06] MEDS: Sodium Bicarbonate 8.4% 50 MEQ/50 ML SYRINGE IVPUSH (03:41)
[2024-10-06] MEDS: Lactated Ringers 1,000 ML 999 ML IV (03:41)
[2024-10-06 04:43] LABS: Venous Blood Gas Refer to POC result
[2024-10-06 04:46] LABS: VBG Base Excess -10.7 mmol/L; VBG HCO3 15 mmol/L (22-26); VBG pCO2 35 mmHg; VBG pH 7.24 (7.32-7.43); VBG pO2 36 mmHg
--- NOTE | 2024-10-06 04:58 | PC.NURSE ---
Patient currently resting in stretcher bed, VSS. Patient denies any pain discomfort, no s/s of distress noted, call day in patient's reach.
--- NOTE | 2024-10-06 05:01 | P.HPHOSP_ITS ---
History of Present Illness Date of Service: 10/06/24 Chief Complaint: Elevated blood glucose, abdominal pain This has a 28-year-old female with pertinent history of type 1 diabetes mellitus who presents to the emergency department for evaluation of nausea, abdominal pain and elevated blood glucose. Patient states she did not take her long- acting insulin for 2 days prior to presentation as she ran out of needles. She normally does not check her blood sugars at home. She takes Lantus in the morning but admits that she is not compliant and occasionally misses her dose. She is also not compliant with her diabetic diet. Patient ran out of needles and hence could not give herself insulin. She started feeling unwell with malaise, headache, nausea and generalized abdominal discomfort. Patient used her sister's boyfriend needles and gave herself 25 units of Lantus and 10 units of lispro prior to presentation. Previously was on insulin but currently only takes Lantus and lispro at home. No fever, chills, chest pain, palpitations, shortness of breath, vomiting, changes in bowel habits. In the emergency department, patient was found to be in DKA and resuscitated with IV crystalloids. PH improved, anion gap closed and patient given to hospital medicine team for further evaluation and management. Review of Systems 2 Constitutional: Constitutional: Reports fatigue and Reports malaise Cardiovascular: Cardiovascular: Reports no additional cardiovascular complaints Respiratory: Respiratory: Reports no additional respiratory complaints Gastrointestinal: Gastrointestinal: Reports abdominal pain and Reports nausea Genitourinary: Genitourinary: Reports no additional female genitourinary complaints Endocrine: Endocrine: Reports fatigue [facility] Medical History Type 1 diabetes mellitus Pertinent family history: No family history of early CAD Social History Patient Tobacco Use Status: Never used Tobacco Smoked in Last 30 Days: No Use of substances other than those prescribed or required for medical reasons: No Advance Directives: No Advance Directives Information Provided: No Nutrition Risks: No Nutritional Risk Patient : No Meds Allergies Allergy/AdvReac Type Severity Reaction Status Date / Time No Known Allergies Allergy Verified 10/05/24 22:05 Physical Exam 2 Vital Signs and Narrative: Vital Signs: Last Vital Signs Temp 98.1 F 10/06/24 03:20 Pulse 84 10/06/24 04:37 Resp 18 10/06/24 04:37 BP 101/64 10/06/24 04:37 Pulse Ox 97 10/06/24 04:37 O2 Del Method Room Air 10/06/24 04:37 BMI result Body Mass Index 19.9 Young female lying in bed in no distress Neck supple, no JVD Regular rate and rhythm, S1-S2 heard Regular breath sounds bilaterally, no wheezing or crackles appreciated Abdomen soft nontender, no guarding, no rigidity Patient is awake, alert and oriented to self, place, time and person ; no focal motor deficit Psych: Normal mood No pedal edema Results Labs 10/05/24 22:16 10/06/24 00:55 Labs: Laboratory Results - last 24 hr 10/05/24 10/05/24 10/05/24 22:16 22:18 23:11 MCV 86.3 MCH 31.3 MCHC 36.3 H RDW 11.4 Plt Count 250 MPV 10.9 Absolute Nucleated RBC 0.000 Nucleated RBC % (auto) 0.0 VBG pH VBG pCO2 VBG pO2 VBG HCO3 VBG O2 Saturation VBG Base Excess Anion Gap 24 H Estim Creat Clear Calc 85.3 Estimated GFR > 60 POC Glucose 218 H Random Glucose 238 H Calcium 9.4 D Magnesium 1.7 Total Bilirubin 1.0 AST 18 ALT 12 Alkaline Phosphatase 109 Total Protein 8.2 H Albumin 4.6 Beta-Hydroxybutyrate 7.52 H Urine Color Yellow Urine Appearance Clear Urine pH 5.5 Ur Specific [place] >= 1.030 H Urine Protein 30 (1+) H Urine Glucose (UA) >=1000 H Urine Ketones >=160 Urine Blood Negative Urine Nitrite Negative Ur Leukocyte Esterase Negative Urine RBC 0-2 Urine WBC 0-5 Ur Squamous Epith Cells 6-10 Urine Bacteria 1+ Hyaline Casts 0-2 10/06/24 10/06/24 10/06/24 00:55 01:00 02:11 MCV MCH MCHC RDW Plt Count MPV Absolute Nucleated RBC Nucleated RBC % (auto) VBG pH 7.17 L* 7.13 L* VBG pCO2 36 37 VBG pO2 36 39 VBG HCO3 13 L 12 L VBG O2 Saturation 47.0 51.0 VBG Base Excess -14.1 -15.6 Anion Gap 18 Estim Creat Clear Calc 118.7 Estimated GFR > 60 POC Glucose Random Glucose 152 H Calcium 8.4 D Magnesium Total Bilirubin AST ALT Alkaline Phosphatase Total Protein Albumin Beta-Hydroxybutyrate Urine Color Urine Appearance Urine pH Ur Specific [place] Urine Protein Urine Glucose (UA) Urine Ketones Urine Blood Urine Nitrite Ur Leukocyte Esterase Urine RBC Urine WBC Ur Squamous Epith Cells Urine Bacteria Hyaline Casts 10/06/24 04:42 MCV MCH MCHC RDW Plt Count MPV Absolute Nucleated RBC Nucleated RBC % (auto) VBG pH 7.24 L VBG pCO2 35 VBG pO2 36 VBG HCO3 15 L VBG O2 Saturation 55.0 VBG Base Excess -10.7 Anion Gap Estim Creat Clear Calc Estimated GFR POC Glucose Random Glucose Calcium Magnesium Total Bilirubin AST ALT Alkaline Phosphatase Total Protein Albumin Beta-Hydroxybutyrate Urine Color Urine Appearance Urine pH Ur Specific [place] Urine Protein Urine Glucose (UA) Urine Ketones Urine Blood Urine Nitrite Ur Leukocyte Esterase Urine RBC Urine WBC Ur Squamous Epith Cells Urine Bacteria Hyaline Casts Assessment and Plan (1) Diabetes mellitus with hyperglycemia: Status: Acute (2) Acidosis due to type 1 diabetes mellitus: Status: Acute Plan This has a 28-year-old female with pertinent history of type 1 diabetes mellitus who presents to the emergency department for evaluation of nausea, abdominal pain and elevated blood glucose. #. Diabetic ketoacidosis in a patient with uncontrolled type 1 diabetes mellitus with hyperglycemia: Resolved. Due to noncompliant with insulin. Patient states she took 25 units of Lantus 3 hours prior to presentation. Resuscitated with IV crystalloids in the ER. Anion gap closed. Initiating Accu-Cheks with sliding scale insulin. Closely monitor POC and symptoms. Repeat labs pending Med rec pending DVT prophylaxis: Lovenox Full code Admit as inpatient and will require two night minimum hospital stay for close monitoring of POC (as above), which is not possible in a lesser acute setting. Quality Stroke Does the patient have a stroke diagnosis?: No VTE Prior VTE?: No VTE Risk Level:: Medical - moderate - high VTE Device Contraindication: Treatment Not Indicated VTE Drug Contraindication: N/A - Med Ordered
[2024-10-06] MEDS: Enoxaparin Sodium 40 MG/0.4 ML SYRINGE SUBCUT (05:18)
[2024-10-06] MEDS: Lactated Ringers 1,000 ML 125 ML IVCONT (05:19)
--- NOTE | 2024-10-06 05:19 | PC.NURSE ---
Patient medicated per MAR. Patient currently offers no complaints, VSS, call day in patient's reach,
[2024-10-06 05:36] LABS: Glucose, Whole Blood 88 mg/dL (60-115)
--- NOTE | 2024-10-06 05:38 | PC.NURSE ---
Nurse to nurse report given to LOYDA Rush in overflow. Patient to be transported to overflow room 6 by histology technologist.
[2024-10-06] MEDS: Acetaminophen 325 MG TABLET 650 MG PO (05:44)
[2024-10-06 05:46] LABS: Basophils Absolute Auto 0.1 X10*3/uL (0.0-0.2); Basophils Percent Auto 0.5 % (0-2); Eosinophils Absolute Auto 0.1 X10*3/uL (0.0-0.4); Eosinophils Percent Auto 0.9 % (0-4); Hematocrit 39.4 % (37.0-47.0); Hemoglobin 14.5 g/dl (12.0-16.0); Imm Gran Abs Auto 0.03 X10*3/uL (0.00-0.03); Imm Gran Pct Auto 0.3 % (0.0-0.4); Lymphocytes Absolute Auto 3.2 X10*3/uL (1.2-4.9); Lymphocytes Percent Auto 34.6 % (20-40); MANUAL DIFF FLAG NO; Mean Corpuscular HGB Conc 36.8 g/dl (31.0-35.0); Mean Corpuscular Hemoglobin 31.3 pg (27.0-33.0); Mean Corpuscular Volume 84.9 fL (80.0-98.0); Mean Platelet Volume 10.5 fL (9.4-12.3); Monocytes Absolute Auto 0.7 X10*3/uL (0.1-1.2); Monocytes Percent Auto 7.2 % (2-11); Neutrophils Absolute Auto 5.3 x10*3/uL (2.0-8.3); Neutrophils Percent Auto 56.5 % (45-73); Platelet Count 213 X10*3/uL (160-400); Red Blood Count 4.64 X10*6/uL (4.20-5.50); Red Cell Distribution Width 11.5 % (11.0-16.0); White Blood Count 9.3 X10*3/uL (4.8-10.8)
[2024-10-06] MEDS: Insulin Regular, Human 100 UNIT/ML 10 ML VIAL IVPUSH (05:53)
[2024-10-06] MEDS: Dextrose 50 % 25 GM/50 ML SYRINGE IVPUSH (05:53)
[2024-10-06 06:16] LABS: Anion Gap 19 (12-20)
[2024-10-06 06:19] LABS: Glucose, Whole Blood 191 mg/dL (60-115)
[2024-10-06 06:19] LABS: Blood Urea Nitrogen 10 mg/dL (9-16); Calcium 8.2 mg/dL (8.4-10.2); Carbon Dioxide 11 mmol/L (22-29); Chloride 109 mmol/L (96-108); Creatinine Clr Calc Pharmacy 140.8; Estimated Glomerular Filt Rate > 60; Glucose Random 90 mg/dL (60-115); Potassium 3.4 mmol/L (3.3-5.1); Sodium 136 mmol/L (135-145)
[2024-10-06 06:30] LABS: HCG Quantitative < 2 mIU/mL
[2024-10-06 06:39] LABS: Glucose, Whole Blood 188 mg/dL (60-115)
[2024-10-06 07:14] LABS: Glucose, Whole Blood 226 mg/dL (60-115)
--- NOTE | 2024-10-06 07:21 | PC.NURSE ---
Report called to overflow to LOYDA Woodward pt to be transported by medical service technician
[2024-10-06] MEDS: Insulin Lispro 100 UNIT/ML 3 ML VIAL SUBCUT ×4 (07:25→20:09)
--- NOTE | 2024-10-06 08:27 | PHA.MEDREC ---
Pharmacy Consult ? Medication Reconciliation Pharmacy has completed the medication reconciliation. Spoke with pt, Pt states she takes Lantus 25 units daily and Insulin Lispro 10 units only once a day, as shed does not check her sugars. And will only inject 10 units daily now, at no particular time of day, just when she remembers.
[2024-10-06 08:48] LABS: ABG Base Excess -8.4 mmol/L; ABG HCO3 15 mmol/L (22-26); ABG pCO2 26 mmHg (32-45); ABG pH 7.36 (7.35-7.45); ABG pO2 134 mmHg (83-108)
[2024-10-06 09:22] LABS: ABG Refer to POC result
[2024-10-06 09:30] LABS: Anion Gap 12 (12-20); Beta-Hydroxybutyrate 2.87 mmol/L (0.02-0.27); Blood Urea Nitrogen 11 mg/dL (9-16); Calcium 8.2 mg/dL (8.4-10.2); Carbon Dioxide 19 mmol/L (22-29); Chloride 108 mmol/L (96-108); Creatinine Clr Calc Pharmacy 120.6; Estimated Glomerular Filt Rate > 60; Glucose Random 250 mg/dL (60-115); Potassium 3.5 mmol/L (3.3-5.1); Sodium 135 mmol/L (135-145)
[2024-10-06] MEDS: 0.9 % Sodium Chloride 1,000 ML 125 ML IVCONT (10:45)
[2024-10-06 11:52] LABS: Glucose, Whole Blood 171 mg/dL (60-115)
[2024-10-06 13:21] LABS: Venous Blood Gas Refer to POC result
[2024-10-06 13:23] LABS: VBG HCO3 21 mmol/L (22-26); VBG pCO2 42 mmHg; VBG pH 7.32 (7.32-7.43); VBG pO2 33 mmHg
[2024-10-06 13:38] LABS: Anion Gap 10 (12-20); Blood Urea Nitrogen 10 mg/dL (9-16); Calcium 8.1 mg/dL (8.4-10.2); Carbon Dioxide 22 mmol/L (22-29); Chloride 109 mmol/L (96-108); Creatinine Clr Calc Pharmacy 133.5; Estimated Glomerular Filt Rate > 60; Glucose Random 211 mg/dL (60-115); Potassium 3.7 mmol/L (3.3-5.1); Sodium 137 mmol/L (135-145)
--- NOTE | 2024-10-06 14:41 | MHC.CM.PN ---
Pt lives with family, PCP is: Brandee Kaur AUTOMOTIVE TITLE CLERK. Pt. does not use home health services, for DME, she has diabetic supplies. She can arrange a ride home at DC, DCP: home, self care. CM to follow for DC needs.
[2024-10-06 16:13] LABS: Glucose, Whole Blood 193 mg/dL (60-115)
--- NOTE | 2024-10-06 17:15 | PM.EVENT ---
Event Note Date of Service: 10/06/24 Event Note: Patient seen and examined by hospitalist team this morning, seen and examined again Fingersticks somewhat improving, using insulin here and there Got shaking fingersticks Physical exam and assessment and plan as per H and P. dka/uncontrolled dm-anion gap improved Time Spent With Patient Time: Total time managing care of this patient today ____ minutes.
[2024-10-06 19:24] LABS: Glucose, Whole Blood 254 mg/dL (60-115)
[2024-10-06] MEDS: Insulin Glargine,Hum.rec.anlog 100 UNIT/ML 10 ML VIAL 25 UNIT SUBCUT (20:10)
[2024-10-06] MEDS: 0.9 % Sodium Chloride Flush 3 ML SYRINGE IVFLUSH (20:12)
[2024-10-07 03:27] VITALS: BP 102/57; PULSE 83; RESP 17; TEMP 37.1; O2SAT 92
[2024-10-07] MEDS: Enoxaparin Sodium 40 MG/0.4 ML SYRINGE SUBCUT (05:15)
[2024-10-07 07:30] LABS: Glucose, Whole Blood 94 mg/dL (60-115)
[2024-10-07 07:37] VITALS: BP 107/71; PULSE 74; RESP 18; TEMP 36.5; O2SAT 99
[2024-10-07 08:31] LABS: Estimated Average Glucose 298 mg/dL
--- NOTE | 2024-10-07 10:55 | P.DS_ITS ---
DS: Providers Provider Date of Service: 10/07/24 Date of admission: 10/06/24 04:59 Date of discharge: 10/07/24 Primary care physician: None Physician Attending physician on discharge: Robby Vaz Discharging clinician: Robby Vaz DS: Diagnosis Discharge Diagnosis (1) Diabetes mellitus with hyperglycemia: Status: Acute (2) Acidosis due to type 1 diabetes mellitus: Status: Acute DS: Summary Hospital Course Hospital Course: hpi:28-year-old female with pertinent history of type 1 diabetes mellitus who presents to the emergency department for evaluation of nausea, abdominal pain and elevated blood glucose. Patient states she did not take her long-acting insulin for 2 days prior to presentation as she ran out of needles. She normally does not check her blood sugars at home. She takes Lantus in the morning but admits that she is not compliant and occasionally misses her dose. She is also not compliant with her diabetic diet. Patient ran out of needles and hence could not give herself insulin. She started feeling unwell with malaise, headache, nausea and generalized abdominal discomfort. Patient used her sister's boyfriend needles and gave herself 25 units of Lantus and 10 units of lispro prior to presentation. Previously was on insulin but currently only takes Lantus and lispro at home. No fever, chills, chest pain, palpitations, shortness of breath, vomiting, changes in bowel habits. In the emergency department, patient was found to be in DKA and resuscitated with IV crystalloids. PH improved, anion gap closed and patient given to hospital medicine team for further evaluation and management. Hospital course: 28-year-old female with pertinent history of type 1 diabetes mellitus who presents to the emergency department for evaluation of nausea, abdominal pain and elevated blood glucose. Diabetic ketoacidosis in a patient with uncontrolled type 1 diabetes mellitus with hyperglycemia: Resolved. Due to noncompliant with insulin-received ivf and lantus and sliding scale coverage -anion gap closed . seems improved ,no abd pain,currently asymptomatic. patient was trongly encouarged to follow dm diet and proper insulin use. plan: Drink plenty of fluids Take your insulin on time Follow up as outpatient with your PCP / junior database administrator. diabeteic education given as well encouraged for proper use of insulin ,monitering fs. moniter bmp outpatient in 1 week. continue lantus ,also continue fs with sliding scale coverage. Above management discussed with the patient detail length she understand in agreement with the above plan, time spent 40 minute, all questions answered, staff was present during conversation. Time Attestation Total time managing care of this patient today: 40 mintues. Discharge Coordination Time (in mins): 40 min Quality: Safe Use of Opioids Does Pt have an Active Cancer Diagnosis on the Problem List?: No Quality: Stroke Does the patient have a stroke diagnosis?: No Physical Exam Vital Signs: Vital Signs: Last Vital Signs Temp 97.7 F 10/07/24 07:37 Pulse 74 10/07/24 07:37 Resp 18 10/07/24 07:37 BP 107/71 10/07/24 07:37 Pulse Ox 99 10/07/24 07:37 O2 Del Method Room Air 10/07/24 07:37 BMI result Body Mass Index 21.4 Appearance: Alert.? Oriented X3.? cvs: rrr, [id number] . res: clear to auscultation ,no rhonchii or wheezing abd: no rebound or guarding ,nt, bs present. ext pulses present , no cyanosis . neuro: axo3 , nonfocal. DS: Data Data Completed and Pending Labs on day of discharge: Laboratory Results - last 24 hr 10/06/24 10/06/24 10/06/24 11:45 13:15 13:20 Hold Purple Top VBG pH 7.32 VBG pCO2 42 VBG pO2 33 VBG HCO3 21 L VBG O2 Saturation 48.0 VBG Base Excess -4.0 Sodium 137 Potassium 3.7 Chloride 109 H Carbon Dioxide 22 Anion Gap 10 L BUN 10 Creatinine 0.61 Estim Creat Clear Calc 133.5 Estimated GFR > 60 POC Glucose 171 H Random Glucose 211 H Estimat Average Glucose Hemoglobin A1c % Calcium 8.1 L 10/06/24 10/06/24 10/07/24 16:05 19:19 07:15 Hold Purple Top VBG pH VBG pCO2 VBG pO2 VBG HCO3 VBG O2 Saturation VBG Base Excess Sodium Potassium Chloride Carbon Dioxide Anion Gap BUN Creatinine Estim Creat Clear Calc Estimated GFR POC Glucose 193 H 254 H 94 Random Glucose Estimat Average Glucose Hemoglobin A1c % Calcium 10/07/24 07:42 Hold Purple Top SEE NOTE VBG pH VBG pCO2 VBG pO2 VBG HCO3 VBG O2 Saturation VBG Base Excess Sodium Potassium Chloride Carbon Dioxide Anion Gap BUN Creatinine Estim Creat Clear Calc Estimated GFR POC Glucose Random Glucose Estimat Average Glucose 298 Hemoglobin A1c % 12.0 H Calcium Discharge Plan Discharge Anticipated Discharge Date/Time: 10/07/24 10:49 Patient Disposition: Home, Self-Care Discharge Diagnosis: dm Referrals: Physician,None [Physician, Medical] - 1 Week Discharge Medications: New insulin glargine [Lantus Solostar U-100 Insulin] 100 unit/mL (3 mL) insulin pen 25 unit subcut QAM Qty: 15 3RF insulin lispro [Humalog KwikPen Insulin] 100 unit/mL insulin pen 0 sliding scale dose SUBCUT QIDACHS Qty: 15 0RF Rx Instructions: Blood Sugar: <150 - 0 units 151-200 - 2 units 201-250 - 4 units 251-300 - 6 units 301-350 - 8 units >350 - 10 units Continued ibuprofen [Advil] 200 mg Tablet 200 mg PO Q6H PRN (Reason: Pain) Discontinued insulin lispro 100 unit/mL insulin pen 10 unit SUBCUT DAILY Discharge Orders: Discharge Order (Routine); Ordered 10/07/24 Ordered By: Robby Vaz Diet: Advance to usual diet Activity on Discharge: As tolerated Stand Alone Forms: Patient Portal Discharge page Print Language: Ukrainian Activity Restrictions/Additional Instructions: Drink plenty of fluids Take your insulin on time Follow up as outpatient with your PCP / junior database administrator. Care Plan Goals: diabeteic education given as well encouraged for proper use of insulin ,monitering fs. moniter bmp outpatient in 1 week. continue lantus ,also continue fs with sliding scale coverage. Health Concerns: as above. Plan of Treatment: as above. Assessment: as above. Patient Instructions: Diabetic Ketoacidosis (DC), Diabetes Type 1: Management (ED) Discharge Date/Time: 10/07/24 12:27
--- NOTE | 2024-10-07 10:56 | MHC.CM.PN ---
PT TO DC HOME WITH NO SERVICES VIA PRIVATE TRANSPORT
[2024-10-07 11:35] LABS: Glucose, Whole Blood 211 mg/dL (60-115)
[2024-10-07] MEDS: Insulin Lispro 100 UNIT/ML 3 ML VIAL SUBCUT (11:39)
== END 2024-10-07 12:27 | disposition home or self-care (01) | DRG 420 ==
LOC: HO.ED 10-06 05:00 → HO.EDOVER 10-06 05:04 → HO.S3 10-06 11:55
PROVIDERS: Internal Medicine; Admitting Provider Student in an Organized Health Care Education/Training Program; Emergency Provider Emergency Medicine; PCP Registered Nurse; Visit Provider Internal Medicine
DX: E10.10 Type 1 diabetes mellitus with ketoacidosis without coma (principal); I95.2 Hypotension due to drugs; T40.2X5A Adverse effect of other opioids, initial encounter; Z91.148 Patient's other noncompliance with medication regimen for other reason
CPT/HCPCS: 36415; 36600; 80048; 80053; 81001; 82010; 82803; 82947; 83036; 83735; 84702; 85025; 85027; 99221; 99285; J1650; J7120

== ENCOUNTER → 2024-10-06 04:59 | Outpatient (BNV) | payer OTHER, SELFPAY | PROVIDERS: Admitting Provider Student in an Organized Health Care Education/Training Program; Emergency Provider Emergency Medicine; Visit Provider Student in an Organized Health Care Education/Training Program | DX: E11.65 Type 2 diabetes mellitus with hyperglycemia (principal) | CPT/HCPCS: 99222; 99499 ==